=== PATIENT | female | born 1965 | race Caucasian/White ===

== ENCOUNTER 2018-05-10 14:10 | Emergency (ER) | payer OTHER ==
[~2018-05-10] VITALS: Ht 175.3 cm; Wt 77.1 kg
[2018-05-10] MEDS ORDERED: METFORMIN HCL500 MG (14:40)
[2018-05-10] MEDS ORDERED: LEXAPRO5 MG (14:41)
== END 2018-05-10 18:58 | disposition home or self-care (01) ==
LOC: ER 14:10
DX: S01.01XA Laceration without foreign body of scalp, initial encounter (principal); S00.83XA Contusion of other part of head, initial encounter; W18.39XA Other fall on same level, initial encounter; Y93.89 Activity, other specified; Y92.098 Other place in other non-institutional residence as the place of occurrence of the external cause; Y99.8 Other external cause status

== ENCOUNTER 2018-11-22 01:56 | Emergency (ER) | payer OTHER ==
[~2018-11-22] VITALS: Ht 175.3 cm; Wt 81.6 kg
[~2018-11-22 01:56] MED LIST: LEXAPRO5 MG; METFORMIN HCL500 MG
[2018-11-22] MEDS ORDERED: CEFADROXIL500 MG PO (03:23)
[2018-11-22] MEDS ORDERED: KETO10TA2 PO (03:23)
== END 2018-11-22 03:27 ==
LOC: ER 01:56
DX: S01.02XA Laceration with foreign body of scalp, initial encounter (principal); R42 Dizziness and giddiness; W18.09XA Striking against other object with subsequent fall, initial encounter; Y93.84 Activity, sleeping; Y92.092 Bedroom in other non-institutional residence as the place of occurrence of the external cause; Y99.8 Other external cause status